=== PATIENT | female | born 1950 | race Caucasian/White ===

== ENCOUNTER 2025-07-26 08:30 | Inpatient (IN) | payer MEDICARE, OTHER ==
[~2025-07-26] VITALS: Ht 167.6 cm; Wt 97.6 kg
[2025-07-26] MEDS ORDERED: SUGAMMADEX SODIUM 200 MG/2 ML VIAL IV ONE (10:54)
[2025-07-26] MEDS ORDERED: FENTANYL PF 100MCG/2ML AMPUL ONE ×2 (10:54→15:12)
[2025-07-26] MEDS ORDERED: ESMOLOL INJ 100 MG/10 ML VIAL IV ONE (10:54)
[2025-07-26] MEDS ORDERED: SUCCINYLCHOLINE CHLORIDE 20 MG/ML VIAL ONE (10:55)
[2025-07-26] MEDS ORDERED: ROCURONIUM BROMIDE 50 MG/5 ML ONE (10:55)
[2025-07-26] MEDS ORDERED: FAMOTIDINE/PF INJ 20 MG/2 ML VIAL IV ONE (10:55)
[2025-07-26] MEDS ORDERED: LIDOCAINE /MPF 1% VIAL 5 ML VIAL ONE (10:56)
[2025-07-26] MEDS ORDERED: LIDOCAINE HCL/PF 2 % 5ML SDV 5 ML VIAL ONE (10:57)
[2025-07-26] MEDS ORDERED: GELATIN SPONGE,ABSORBABLE 1 EA SPONGE TP ONE (11:06)
[2025-07-26] MEDS ORDERED: POLYMYXIN B SULFATE 500,000 UNITS ONE (11:06)
[2025-07-26] MEDS ORDERED: BUPIVACAINE 0.5 % PF 150 MG/30 ML VIAL ONE (11:06)
[2025-07-26] MEDS ORDERED: GENTAMICIN 80 MG/2 ML VIAL ONE (11:06)
[2025-07-26] MEDS ORDERED: LIDOCAINE 2%-EPI 1:100,000 30 ML VIAL ONE (11:06)
[2025-07-26] MEDS ORDERED: VANCOMYCIN 1 GM VIAL ONE (11:07)
[2025-07-26] MEDS ORDERED: dexaMETHasone SOD PHOSPHATE 1 ML ONE (11:07)
[2025-07-26] MEDS ORDERED: OXYMETAZOLINE HCL NASAL SPRAY 30 ML BOTTLE NS ONE (11:07)
[2025-07-26] MEDS ORDERED: GELATIN SPONGE,ABSORBABLE 1 SPONGE SPONGE TP ONE (11:07)
[2025-07-26] MEDS ORDERED: CEFAZOLIN 1 GM ONE (11:07)
[2025-07-26] MEDS ORDERED: THROMBIN (BOVINE) 20,000 UNITS SPRAY KIT TP ONE (11:07)
[2025-07-26] MEDS ORDERED: SEVOFLURANE 250 ML BOTTLE IH ONE (13:08)
[2025-07-26] MEDS ORDERED: ONDANSETRON HCL/PF 4 MG/2 ML VIAL IV PRN (16:00)
[2025-07-26] MEDS: IV NS 0.9% 1,000 ML IV PRN (16:25)
[2025-07-26] MEDS ORDERED: INSULIN REGULAR, HUMAN 100 UNIT/ML 3 ML VIAL SQ PRN (16:30)
[2025-07-26] MEDS ORDERED: *INSULIN REGULAR(HUMULIN R)HUM 100 UNIT/ML VIAL SQ PRN (16:30)
[2025-07-26] MEDS ORDERED: DEXTROSE 50%-WATER 50 ML DISP.SYRIN IV PRN ×2 (16:30→17:30)
[2025-07-26 16:45] VITALS: BP 151/71; TEMP 98.2; O2SAT 95
[2025-07-26] MEDS: CHLORHEXIDINE GLUCONATE 15 ML UDC MM SCH (17:06)
[2025-07-26] MEDS: BLOOD SUGAR DIAGNOSTIC 1 EACH STRIP VI SCH (17:09)
[2025-07-26] MEDS: BLOOD SUGAR DIAGNOSTIC 1 EACH STRIP IN SCH (17:23)
[2025-07-26] MEDS: ZOSYN IVPB 3.375 G in IV D5W 50ml IV SCH (17:24)
[2025-07-26] MEDS: INSULIN REGULAR, HUMAN 100 UNIT/ML 3 ML VIAL SQ PRN (17:37)
[2025-07-26] MEDS ORDERED: PIPERACILLIN /TAZOBACTAM 3.375 G in IV D5W 50 ML IV SCH (18:00)
[2025-07-26 20:00] VITALS: BP 154/104; TEMP 97.9; O2SAT 94
[2025-07-26] MEDS: P-EPHED SUL/LORATADINE (24H) 1 TAB.SR.24H PO SCH (21:40)
[2025-07-26] MEDS: ACETAMINOPHEN 325 MG TABLET PO PRN (21:40)
[2025-07-27] MEDS: VANCOMYCIN 1 GM in IV D5W 250ml IV SCH (00:33)
[2025-07-27] MEDS: HYDROMORPHONE 1 MG/1 ML DISP.SYRIN IV PRN (05:56)
[2025-07-27 08:00] VITALS: BP 121/70; TEMP 97.9; O2SAT 98
== END 2025-07-27 12:05 | disposition home or self-care (01) | DRG 141 ==
LOC: DS 08:30 → MED 11:53
PROC: 0NSR04Z Reposition Maxilla with Internal Fixation Device, Open Approach (ICD-10-PCS; 2025-07-26)
PROC: 09UR07Z Supplement Left Maxillary Sinus with Autologous Tissue Substitute, Open Approach (ICD-10-PCS; 2025-07-26)
PROC: 09UQ07Z Supplement Right Maxillary Sinus with Autologous Tissue Substitute, Open Approach (ICD-10-PCS; 2025-07-26)
PROC: 0KX10Z2 Transfer Facial Muscle with Skin and Subcutaneous Tissue, Open Approach (ICD-10-PCS; 2025-07-26)
PROC: 0NUR07Z Supplement Maxilla with Autologous Tissue Substitute, Open Approach (ICD-10-PCS; 2025-07-26)
PROC: 0N5R0ZZ Destruction of Maxilla, Open Approach (ICD-10-PCS; principal; 2025-07-26 11:30)
DX: S02.40DB Maxillary fracture, left side, initial encounter for open fracture (principal); M87.9 Osteonecrosis, unspecified; D69.6 Thrombocytopenia, unspecified; E11.9 Type 2 diabetes mellitus without complications; D16.5 Benign neoplasm of lower jaw bone; D16.4 Benign neoplasm of bones of skull and face; J32.0 Chronic maxillary sinusitis; S02.40CB Maxillary fracture, right side, initial encounter for open fracture; I10 Essential (primary) hypertension; E66.9 Obesity, unspecified; M27.2 Inflammatory conditions of jaws; X58.XXXA Exposure to other specified factors, initial encounter; Y92.9 Unspecified place or not applicable; Z90.49 Acquired absence of other specified parts of digestive tract; Z79.4 Long term (current) use of insulin; Z98.890 Other specified postprocedural states; Z85.528 Personal history of other malignant neoplasm of kidney; Z68.34 Body mass index [BMI] 34.0-34.9, adult; M81.0 Age-related osteoporosis without current pathological fracture; M84.9 Disorder of continuity of bone, unspecified; K13.79 Other lesions of oral mucosa
CPT/HCPCS: 82962-TC; A4223; A4338; A6403; C1713; G0378; J0330; J0690; J1100; J1171; J1308; J1580; J1815; J2405; J2543; J2704; J3010; J3373; J3490; J7030; J7050; J7060